=== PATIENT | male | born 1980 | race Caucasian/White ===

== ENCOUNTER 2024-07-31 23:47 | Emergency (ER) | payer MEDICAID ==
[~2024-07-31] VITALS: Ht 177.8 cm; Wt 90.9 kg
[2024-07-31 23:49] VITALS: BP 151/99; PULSE 99; RESP 16; TEMP 97.8; O2SAT 98
== END 2024-08-01 00:45 ==
LOC: ER 23:49
DX: F10.129 Alcohol abuse with intoxication, unspecified (principal); Z88.1 Allergy status to other antibiotic agents; W22.09XA Striking against other stationary object, initial encounter; Y93.89 Activity, other specified; Y92.481 Parking lot as the place of occurrence of the external cause; Y99.8 Other external cause status
CPT/HCPCS: 99283